=== PATIENT | female | born 1955 | race Caucasian/White ===

== ENCOUNTER → 2016-08-05 | Outpatient (CLI) | payer MEDICARE | LOC: OPSV 10:00 | DX: C15.9 Malignant neoplasm of esophagus, unspecified (principal) ==

== ENCOUNTER → 2016-08-06 | Outpatient (CLI) | payer MEDICARE | LOC: OPSV 15:00 | DX: C15.9 Malignant neoplasm of esophagus, unspecified (principal) | CPT/HCPCS: G0463 ==